=== PATIENT | male | born 1995 | race Caucasian/White ===

== ENCOUNTER 2023-05-29 10:13 | Emergency (ER) | payer BC, SELFPAY ==
[2023-05-29 10:25] VITALS: BP 119/60; PULSE 59; RESP 16; TEMP 37.2; O2SAT 100
--- NOTE | 2023-05-29 10:26 | ED.SKABFB ---
HPI - Skin/Abscess/Foreign Bdy General Chief complaint: Skin/Abscess/Foreign Body Stated complaint: SPOT ON R FOOT Source: patient and RN notes reviewed History of Present Illness HPI narrative: 27 yo M presents to urgent care with complaints of right foot rash. Pt states he first noticed this 1 week ago and reports associated foul smell and pain to the area. 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 Denies any fevers, chills, or other symptoms. Pt has not put anything on his rash. Related Data Allergies Allergy/AdvReac Type Severity Reaction Status Date / Time NKDA Allergy Mild Other Uncoded 05/29/23 10:16 Review of Systems Review of Systems: CONSTITUTIONAL: Denies fever, chills, or sweats. EYES: Denies visual changes, redness, or discharge. ENT: Denies otalgia and sore throat CARDIOVASCULAR: Denies chest pain, palpitations, or edema. RESPIRATORY: Denies cough or dyspnea. GASTROINTESTINAL: Denies abdominal pain, nausea, vomiting, or diarrhea. GENITOURINARY: Denies dysuria or hematuria. SKIN: rash to right foot MUSCULOSKELETAL: Denies back pain, joint pain, or myalgia. NEUROLOGIC: Denies headache, numbness, or weakness. Pertinent positives per HPI. PMFSH Comments At the time of my signature, I reviewed and agree with the nursing past medical, surgical, social, and family history. There is no relevant family history pertinent to the patient complaint. Exam Narrative: GENERAL: This is a well-nourished, well-developed patient, in no apparent distress. HEAD: normocephalic, atraumatic. EYES: Sclera clear/white. Vision is grossly intact. EARS: External ears normal, auditory canals clear and without drainage. Hearing grossly intact. NOSE: External nose normal with no obvious nasal discharge, nares without redness, no rhinorrhea. THROAT: Mucous membranes moist, posterior pharynx clear. NECK: Neck supple, non-tender without lymphadenopathy, masses or thyromegaly. CARDIOVASCULAR: Regular rate RESPIRATORY: No respiratory distress SKIN: erythema with a few open areas to right, volar side of foot, at the 1st and 2nd MTP joints; foul-smelling NEURO: awake, alert, and oriented to person, place and time. There were no obvious focal neurologic abnormalities. EXTREMITIES: No clubbing, cyanosis, or edema. No joint tenderness, effusion, or edema noted. BACK: Nontender without deformity or crepitus. No flank tenderness. Course Course Level of Care: Express Care Visit Vital Signs Vital signs: Vital Signs Temperature 98.9 F 05/29/23 10:25 Pulse Rate 59 L 05/29/23 10:25 Respiratory Rate 16 05/29/23 10:25 Blood Pressure 119/60 05/29/23 10:25 Pulse Oximetry 100 05/29/23 10:25 Temperature 98.9 F 05/29/23 10:25 Pulse Rate 59 L 05/29/23 10:25 Respiratory Rate 16 05/29/23 10:25 Blood Pressure 119/60 05/29/23 10:25 Pulse Oximetry 100 05/29/23 10:25 reviewed MDM - Skin/Abscess/Foreign Bdy MDM Narrative Medical decision making narrative: use the cream as directed. keep your feet as dry as possible and take extra socks to work with you. Differential Diagnosis Differential diagnosis: Likely cellulitis, impetigo, contact dermatitis and other (athletes foot) Critical Care Time Critical Care Time Critical Care Time: No Discharge Plan Discharge Clinical Impression: Athlete's foot on right Patient Disposition: Home, Self-Care Condition: Stable Instructions: Terbinafine (On the skin) Additional Instructions: use the cream as directed. keep your feet as dry as possible and take extra socks to work with you. Prescriptions: New terbinafine HCl 1 % cream 1 applic topical BID 10 Days Qty: 30 0RF Follow-up/Referrals: PHYSICIAN,SUPERCHARGE REPAIR SUPERVISOR [Primary Care Provider] - Time of Disposition: 10:47
== END 2023-05-29 10:55 | disposition home or self-care (01) ==
PROVIDERS: Emergency Provider Nurse Practitioner Family
DX: B35.3 Tinea pedis (principal)
CPT/HCPCS: 99213; G0463